=== PATIENT | female | born 1960 | race Caucasian/White ===

== ENCOUNTER 2016-03-24 06:12 | Day surgery (SDC) | payer OTHER ==
[~2016-03-24] VITALS: Ht 152.4 cm; Wt 63.4 kg
[2016-03-24 07:01] VITALS: Ht 152.4 cm; Wt 63.4 kg
[2016-03-24] MEDS ORDERED: LISINOPRIL PO (07:07)
[2016-03-24 07:22] VITALS: BP 137/65; PULSE 54; RESP 20
[2016-03-24] MEDS ORDERED: MIDAZOLAM 1 MG/ML 2 ML INJ ONE ×2 (08:29)
[2016-03-24] MEDS ORDERED: FENTAnyl 50 MCG/ML VIAL ONE (08:29)
[2016-03-24 08:45] VITALS: BP 128/76; PULSE 60; RESP 18
--- NOTE | 2016-03-25 04:40 | GILP ---
DATE OF PROCEDURE: 03/24/2016 NAME OF PROCEDURE: Colonoscopy. SURGEON: Cheryl Childress MD PREOPERATIVE DIAGNOSIS: Screening colonoscopy. POSTOPERATIVE DIAGNOSES 1. Colonoscopy all the way to the cecum. 2. Diverticulosis of the colon. 3. Internal hemorrhoids. 4. No colon neoplasm was identified. INDICATION FOR THE PROCEDURE: Ms. Bailey Hurst is a 55-year-old female patient who was scheduled f or screening colonoscopy. The procedure and possible complications were well explained to the patient, she understood and cons ented to the procedure. DESCRIPTION OF PROCEDURE: Under the influence of fentanyl and Versed, the colonoscope was carefully introduced in the rectum and under direct vision, it was advanced all the way to the cecum. FINDINGS: The patient had diverticulosis of the colon. She also had internal hemorrhoids. No colo n neoplasm was identified. She tolerated the procedure very well and there was no complication from the procedure. At the end of the procedure, she was awake with stable vital signs and she was discharged home to the care of h er family. IMPRESSION: 1. Colonoscopy all the way to the cecum. 2. Internal hemorrhoids. 3. Diverticulosis of the colon. 4. No colon neoplasm was identified. PLAN: Next screening colonoscopy in 10 years. Dictated By: CHERYL SANDERS/CITLALLI Conf#: [id number] DID#: [id number]
== END 2016-03-24 08:23 | disposition home or self-care (01) ==
LOC: GIL 06:12
PROVIDERS: ATTEND Internal Medicine Gastroenterology
DX: Z12.11 Encounter for screening for malignant neoplasm of colon (principal); K57.90 Diverticulosis of intestine, part unspecified, without perforation or abscess without bleeding; K64.8 Other hemorrhoids; I10 Essential (primary) hypertension
CPT/HCPCS: 45378; J2250; J3010